=== PATIENT | female | born 1980 | race American Indian/Alaskan Native ===

== ENCOUNTER 2017-01-10 03:11 | Inpatient (IN) | payer BC, MEDICAID ==
[2017-01-10 03:49] LABS: Basophils % (Auto) 0.8 % (0.0-1.8); Eosinophils % (Auto) 0.3 % (0.0-4.3); Hemoglobin 7.2 gm/dl (10.1-14.3); Mean Corpuscular HGB Conc 30 % (30-34); Platelet Count 449 K/mm3 (140-440); Red Blood Count 3.96 M/mm3 (3.65-5.03); Red Cell Distribution Width 17.7 % (13.2-15.2); White Blood Count 14.4 K/mm3 (4.5-11.0)
[2017-01-10 04:04] LABS: Alanine Aminotransferase 9 units/L (7-56); Albumin 3.8 g/dL (3.9-5); Albumin/Globulin Ratio 1.2 %; Alkaline Phosphatase 82 units/L (35-129); Anion Gap 18 mmol/L; Bilirubin,Total < 0.2 mg/dL (0.1-1.2); Blood Urea Nitrogen 9 mg/dL (7-17); Calcium 8.4 mg/dL (8.4-10.2); Carbon Dioxide 22 mmol/L (22-30); Glucose 151 mg/dL (65-100); Sodium 135 mmol/L (137-145)
[2017-01-10 04:25] LABS: Mean Corpuscular Volume 61 fl (79-97)
[2017-01-10 04:26] LABS: Mean Corpuscular Hemoglobin 18 pg (28-32)
[2017-01-10 04:46] LABS: Bilirubin,Urine NEG (Negative); Blood,Urine NEG (Negative); Ketones,Urine NEG (Negative); Leukocyte Esterase,Urine NEG (Negative); Mucus,Urine FEW /HPF; Nitrite,Urine NEG (Negative); Protein,Urine <15 mg/dL mg/dL (Negative); RBC,Urine < 1.0 /HPF (0.0-6.0); Urobilinogen,Urine < 2.0 mg/dL (<2.0)
[2017-01-10 06:07] LABS: Lipase 19 units/L (13-60)
[2017-01-10] MEDS ORDERED: NACL 0.9% 1000 ML 1,000 ML IV ONE ×2 (08:06→10:09)
[2017-01-10] MEDS ORDERED: TORADOL IV ONE ×2 (08:06→10:09)
[2017-01-10] MEDS ORDERED: ZOFRAN IV ONE ×3 (08:09→15:57)
[2017-01-10] MEDS ORDERED: KCL 10MEQ/100ML 10 MEQ/100 ML BAG IV ONE (08:30)
[2017-01-10] MEDS ORDERED: MORPHINE IV ONE ×2 (08:31→15:57)
--- NOTE | 2017-01-10 09:00 | Emergency Department Report ---
ED Abdominal Pain HPI - General Chief Complaint: Abdominal Pain Stated Complaint: BACK AND ABD PAIN Time Seen by Provider: 01/10/17 07:50 Source: patient, family Mode of arrival: Wheelchair Limitations: No Limitations - History of Present Illness Initial Comments: 36-year-old female past medical history hypothyroid status post thyroidectomy hypertension presents with 2 days of nausea vomiting epigastric abdominal pain radiating from front to back inability to tolerate by mouth and severe pain currently 10 out of 10 on my clinical exam. Patient appears extremely uncomfortable writhing in bed. Awake alert and oriented 3 denies any trauma to the abdomen states that this started abruptly last night and has gotten progressively worse overnight. Denies any bleeding states she is not currently denies any allergies to any medicines denies starting any new medicines no recent abdominal surgeries. Patient denies any history of cardiovascular disease other than high blood pressure. MD Complaint: abdominal pain Onset/Timin -: days(s) Time: 01:00 Location: periumbilical, epigastric Radiation: back Severity: severe Severity scale (0 -10): 7 Quality: sharp Consistency: constant Worsens With: bowel movement, vomiting - Related Data Previous Rx's Medication Instructions Recorded Last Taken Type Erythromycin [Erythromycin Ophth 0 gm OD ONCE #1 tube 11/09/15 Unknown Rx Oint] Allergies Allergy/AdvReac Type Severity Reaction Status Date / Time No Known Allergies Allergy Verified 01/10/17 03:22 ED Review of Systems ROS: Stated complaint: BACK AND ABD PAIN Other details as noted in HPI Constitutional: denies: chills, fever Eyes: denies: eye pain, eye discharge, vision change ENT: denies: ear pain, throat pain Respiratory: denies: cough, shortness of breath, wheezing Cardiovascular: denies: chest pain, palpitations Endocrine: no symptoms reported Gastrointestinal: abdominal pain, nausea. denies: diarrhea Genitourinary: denies: urgency, dysuria, discharge Musculoskeletal: denies: back pain, joint swelling, arthralgia Skin: denies: rash, lesions Neurological: denies: headache, weakness, paresthesias Psychiatric: denies: anxiety, depression Hematological/Lymphatic: denies: easy bleeding, easy bruising ED Past Medical Hx - Past Medical History Previous Medical History?: Yes Hx Hypertension: Yes Additional medical history: Goiter - Surgical History Past Surgical History?: Yes Additional Surgical History: , thyroidectomy - Social History Smoking Status: Never Smoker Substance Use Type: Alcohol - Medications Home Medications: Home Medications Medication Instructions Recorded Confirmed Last Taken Type Erythromycin [Erythromycin Ophth 0 gm OD ONCE #1 tube 11/09/15 Unknown Rx Oint] ED Physical Exam - General Limitations: No Limitations General appearance: alert, in no apparent distress - Head Head exam: Present: atraumatic, normocephalic - Eye Eye exam: Present: normal appearance, PERRL, EOMI - ENT ENT exam: Present: mucous membranes moist - Neck Neck exam: Present: normal inspection, full ROM - Respiratory Respiratory exam: Present: normal lung sounds bilaterally. Absent: respiratory distress - Cardiovascular Cardiovascular Exam: Present: regular rate, normal rhythm. Absent: systolic murmur, diastolic murmur, rubs, gallop - GI/Abdominal GI/Abdominal exam: Present: tenderness (+ epigastric and RUQ pain on palpation) , guarding, rebound, rigid, normal bowel sounds - Extremities Exam Extremities exam: Present: normal inspection, full ROM, normal capillary refill - Back Exam Back exam: Present: normal inspection - Neurological Exam Neurological exam: Present: alert, oriented X3 - Psychiatric Psychiatric exam: Present: normal affect, normal mood - Skin Skin exam: Present: warm, dry, intact, normal color. Absent: rash ED Course Vital Signs 01/10/17 01/10/17 03:22 12:15 Temperature 98.2 F 98.2 F Pulse Rate 69 82 Respiratory 18 18 Rate Blood Pressure 147/90 Blood Pressure 116/82 [Right] O2 Sat by Pulse 99 100 Oximetry ED Medical Decision Making - Lab Data Result diagrams: 01/10/17 03:29 01/10/17 03:29 - Medical Decision Making A/P: Biliary colic, abdominal pain, gallstone cholecystitis 1-discussed case with Dr. Tse is of general surgery and hospitalist Dr. Woo and attending Dr. Flores 2-patient made nothing by mouth given IV fluid resuscitation, morphine and IV Zofran IV 3-IV Zosyn and IV Levaquin as per hospitalist and surgery consults empiric coverage of intra-abdominal infection 4-I informed patient that I am concerned that she has an inflamed gallbladder secondary to gallstones and a possible intra-abdominal infection which is why we are admitting her for medical and potential surgical management of her gallbladder issue. Patient still unable to tolerate by mouth and still in pain , agrees to this plan. Awake alert and oriented 3 vital signs have been stable throughout ED stay thus far 5- patient to be admitted to hospitalist service surgery service to consult for possible cholecystectomy, patient to remain nothing by mouth until instructed otherwise by general surgery Critical care attestation.: If time is entered above; I have spent that time in minutes in the direct care of this critically ill patient, excluding procedure time. ED Disposition Clinical Impression: Abdominal pain Disposition: OP ADMITTED IP TO THIS HOSP Is pt being admited?: Yes Does the pt Need Aspirin: No Condition: Stable Instructions: Abdominal Pain (ED) Referrals: PRIMARY CARE, [Primary Care Provider] - 3-5 Days
[2017-01-10 09:22] LABS: Amylase 52 units/L (27-131); Creatine Kinase 191 units/L (30-135); Lipase 15 units/L (13-60)
--- NOTE | 2017-01-10 10:13 | XRay Report ---
ROUTINE CHEST, TWO VIEWS: PA and lateral views demonstrate the heart and mediastinal contour to be of normal size and shape. The lungs are clear and fully expanded and the soft tissues and bony structures are normal. IMPRESSION: Normal study.
--- NOTE | 2017-01-10 12:09 | Cat Scan Report ---
CT SCAN OF THE ABDOMEN AND PELVIS WITH CONTRAST: HISTORY: Epigastric abdominal pain. TECHNIQUE: Helical CT in 1.25mm intervals following IV contrast. Sagittal and coronal reconstructions. FINDINGS: The liver is normal in size and is without focal defect. The gallbladder is borderline dilated and contains multiple gallstones measuring up to 1 cm. The common bile duct and intrahepatic ducts are normal caliber and there may be minimal gallbladder wall edema. No pericholecystic fluid or advanced inflammatory changes. The spleen and pancreas demonstrate a normal size and attenuation with no evidence of abnormal mass. The kidneys are normal in size and position with no evidence of hydronephrosis or mass. The adrenal glands are normal. There is no intestinal obstruction or ascites. Normal appendix. The abdominal aorta is normal. A 2 cm fibroid is identified in the anterior uterine wall. The endometrium and ovaries are within normal limits. There is no evidence of peritoneal air or fluid. There is no evidence of any abnormal masses or fluid collections within the pelvis. No adenopathy is identified. The bladder is normal. IMPRESSION: Cholelithiasis. Questionable gallbladder wall thickening. Correlate for biliary symptoms. 2 cm uterine fibroid.
[2017-01-10] MEDS ORDERED: ZOSYN/NS 4.5GM/100ML 4.5 GM/100 ML VIAL IV ONE (12:42)
[2017-01-10] MEDS ORDERED: LACTATED RINGERS 1,000 ML IV SCH (13:00)
--- NOTE | 2017-01-10 13:01 | Ultrasound Report ---
Ultrasound of the right upper quadrant. Findings: The abdominal aorta and liver are normal. There are multiple gallstones. The wall the gallbladder is not thickened. The Common bile duct is normal in caliber. The right kidney and pancreas are normal. Impression: Cholelithiasis.
[2017-01-10] MEDS ORDERED: LEVAQUIN 500MG/100ML 500 MG/100 ML BAG IV ONE (14:23)
[2017-01-10] MEDS ORDERED: MILK OF MAGNESIA PO PRN (17:53)
[2017-01-10] MEDS ORDERED: DULCOLAX PR PRN (17:53)
[2017-01-10] MEDS ORDERED: TYLENOL PO PRN (17:53)
--- NOTE | 2017-01-10 18:54 | Admit Criteria Form ---
Admission Criteria Documentation: GALLBLADDER OR BILE DUCT INFLAMMATION OR STONE Clinical Indications for Admission to Inpatient Care ( Place 'X' for any and all applicable criteria): Admission is indicated for patients with ANY ONE of the following(1)(2)(3)(4)(5) : [ X]I. Acute cholecystitis as indicated by ALL of the following: [X ]a) Right upper quadrant pain, mass, or tenderness [X ]b) Systemic signs of inflammation indicated by ANY ONE of the following: [ ]i) Fever [ ]ii) C-reactive protein level greater than 10 mg/L (95 nmol/L) [ X]iii) White blood cell count greater than 10,000/mm3 (10 x109/L) or less than 4000/mm3 (4 x109/L) [ ]II. Inpatient admission required rather than observation care (Also use Gallbladder or Bile Duct Inflammation or Stone: Observation Care as appropriate) because of ANY ONE of the following: [ ]a) Common bile duct obstruction diagnosed [ ]b) Vomiting that is severe or persistent [ ]c) Severe pain requiring acute inpatient management [ ]d) Signs of intestinal obstruction or peritonitis [A] [ ]e) Severe electrolyte abnormalities requiring inpatient care [ ]f) Absent bowel sounds with complete ileus(8) [ ]g) Hemodynamic instability [ ]h) High fever or infection requiring inpatient admission as indicated by ANY ONE of the following (9): [ ]1) Appropriate outpatient or observation care antimicrobial Treatment. unavailable, not effective, or not feasible [ ]2) Temperature greater than 104.9 degrees F (40.5 degrees C) (oral) [ ]3) Temperature greater than 103.1 degrees F (39.5 degrees C) (oral) or less than 96.8 degrees F (36 degrees C) (rectal) that does not respond to all emergency treatment measures [ ]4) Documented bacteremia [ ]i) IV fluid to replace significant ongoing losses (greater than 3 L/m2 per day) [ ]j) Percutaneous or open drainage (eg, abscess, biliary tract) procedures [ ]k) Immediate inpatient surgery [ ]l) Other condition, treatment or monitoring requiring inpatient admission [ ]III. Acute cholangitis as indicated by ALL of the following(9)(10): [ ]a) Systemic signs of inflammation indicated by ANY ONE of the following: [ ]i) Fever [ ]ii) C-reactive protein level greater than 10 mg/L (95 nmol /L) [ ]iii) White blood cell count greater than 10,000/mm3 (10 x109/L) or less than 4000/mm3 (4 x109/L) [ ]b) Evidence of common bile duct disease indicated by ANY ONE of the following: [ ]i) Total serum bilirubin level greater than or equal to 2 mg/dL (34 micromoles/L) [ ]ii) Liver function test (alkaline phosphatase (ALP), r- glutamyltransferase (GGT), aspartate aminotransferase (AST), or alanine aminotransferase (ALT)) greater than 1.5 times the upper limit of normal[B] [ ]iii) Hepatobiliary imaging showing biliary dilatation or evidence of etiology (eg, stricture, stone, previously placed stent) Extended stay beyond goal length of stay may be needed for (1)(2)): [ ]a) Bacteremia or Hemodynamic instability [ ]b) Cholecystectomy [ ]c) Other surgical procedure(24) [ ]d) Percutaneous or endoscopic ultrasound-guided cholecystostomy The original [facility] content created by [facility] has been revised. The portions of the content which have been revised are identified through the use of italic text or in bold, and [facility] has neither reviewed nor approved the modified material. All other unmodified content is copyright [facility]. Please see references footnoted in the original [facility] edition 2016 Admission Criteria Met: Yes
[2017-01-10] MEDS: DILAUDID IV PRN (22:25)
[2017-01-10] MEDS: ZOFRAN IV PRN (22:26)
--- NOTE | 2017-01-11 02:32 | Event Note ---
Date: 01/10/17 # See H/p in reports Cholelelithiasis HTN Hypothyroidism Acute anemia Hypokalemia
[2017-01-11] MEDS ORDERED: NACL 0.9% 500 ML 500 ML IV ONE (02:45)
--- NOTE | 2017-01-11 03:18 | History and Physical Report ---
CHIEF COMPLAINT: Right upper quadrant pain for two days. HISTORY OF PRESENT ILLNESS: A 36-year-old -[place] female with a history of hypothyroidism and hypertension, presents with right upper quadrant pain associated with nausea and vomiting for the last two days. Pain is about 10 on a scale of 1-10. No shortness of breath. No chest pain. No palpitations. No fever, no chills. This is the first episode of right upper quadrant pain. The patient is on blood pressure medication. PAST MEDICAL HISTORY: Significant for hypertension and hypothyroidism. PAST SURGICAL HISTORY: and thyroidectomy. SOCIAL HISTORY: Does not smoke. Alcohol occasionally. FAMILY HISTORY: Significant for hypertension. HOME MEDICATIONS: Erythromycin. REVIEW OF SYSTEMS: Right upper quadrant pain associated with nausea and vomiting x3. Otherwise, review of systems negative. All systems reviewed. PHYSICAL EXAMINATION: GENERAL: Middle-aged female, cooperative during examination. VITAL SIGNS: Blood pressure 132/73, temperature 98.2, pulse is 78, respirations are 18. HEENT: Unremarkable. Pupils equal and reactive. NECK: Supple, no lymphadenopathy, no thyromegaly. LUNGS: Clear to auscultation and percussion. Good air entry. CARDIOVASCULAR: S1, S2 heard. No gallop, no murmur, no rub. Apical impulse in the left fifth intercostal space and midclavicular line. ABDOMEN: Right upper quadrant tenderness present. Guarding present. No rebound tenderness present. Bowel sounds are normal. Hernial orifices are normal. EXTREMITIES: Good pedal pulses. No pedal edema. CENTRAL NERVOUS SYSTEM: Alert and oriented x4, nonfocal exam. SKIN: Normal. EXTREMITIES: Good pulses felt. LABORATORY DATA: Significant for white count of 14,400, H and H of 7.2 and 24.0, platelet count of 449,000. Sodium is 135, potassium is 3.0. Lactic acid is 3.0. BUN and creatinine is 99.6. LFTs normal. CT of the abdomen and ultrasound of the abdomen showed cholelithiasis and gallbladder thickening. ASSESSMENT AND PLAN: 1. Acute cholelithiasis. The patient may need cholecystectomy. Dr. Kennedy, surgeon on-call who consulted. 2. High lactic acid, possible infection. We will start IV Zosyn. 3. Hypokalemia, to be supplemented. 4. Acute anemia, iron studies, folic acid, B12 ordered. Transfuse two units of blood because of the potential surgery. 5. Deep venous thrombosis, sequential compression devices, Lovenox also. In summary, the patient has cholelithiasis, acute anemia, and hypokalemia. JOB# [id number] FADI/KEON
[2017-01-11] MEDS: KCL 10MEQ/100ML 10 MEQ/100 ML BAG IV SCH ×4 (03:40→08:00)
[2017-01-11] MEDS: DILAUDID IV PRN ×4 (06:31→22:11)
[2017-01-11 07:03] LABS: Basophils % (Auto) 0.2 % (0.0-1.8); Eosinophils % (Auto) 0.1 % (0.0-4.3); Hematocrit 24.6 % (30.3-42.9); Hemoglobin 7.4 gm/dl (10.1-14.3); Mean Corpuscular HGB Conc 30 % (30-34); Platelet Count 403 K/mm3 (140-440); Red Blood Count 4.03 M/mm3 (3.65-5.03); Red Cell Distribution Width 17.7 % (13.2-15.2); White Blood Count 10.6 K/mm3 (4.5-11.0)
[2017-01-11 07:06] LABS: Mean Corpuscular Hemoglobin 18 pg (28-32); Mean Corpuscular Volume 61 fl (79-97)
[2017-01-11 08:06] LABS: Alanine Aminotransferase 179 units/L (7-56); Albumin 3.8 g/dL (3.9-5); Albumin/Globulin Ratio 1.5 %; Alkaline Phosphatase 114 units/L (35-129); Anion Gap 16 mmol/L; BUN/Creatinine Ratio 6.66; Blood Urea Nitrogen 4 mg/dL (7-17); Calcium 8.4 mg/dL (8.4-10.2); Carbon Dioxide 24 mmol/L (22-30); Chloride 101.4 mmol/L (98-107); Glucose 97 mg/dL (65-100); Potassium 3.7 mmol/L (3.6-5.0); Sodium 138 mmol/L (137-145); Total Protein 6.3 g/dL (6.3-8.2)
[2017-01-11 09:44] LABS: Bilirubin,Total 0.2 mg/dL (0.1-1.2)
[2017-01-11] MEDS: ZOSYN/NS 4.5GM/100ML 4.5 GM/100 ML VIAL IV SCH ×3 (10:52→22:13)
[2017-01-11] MEDS: ZOFRAN IV PRN (10:53)
--- NOTE | 2017-01-11 12:24 | Progress Note ---
Assessment and Plan Full consult dictated 36 y/o female - acute cholecystitis Feeling much better now. Abd soft. non tender at present labs as below. wbc down to 10.6. Extremely anemic. (pt has hx of uterine fibroids) GB U/S - + stones. CBD wnl imp - improving cholecystitis/biliary colic severe anemia needs blood transfusion prior to contemplating surg continue IV Levaquin possible lap GB in next 48 hrs pending clinical progression Selected Entries 01/11/17 07:00 Temperature 97.8 F Pulse Rate [ 69 Right From Monitor] Respiratory 18 Rate Blood Pressure 118/80 [Right Arm] Laboratory Tests 01/10/17 01/11/17 01/11/17 03:29 06:03 06:03 WBC 14.4 H 10.6 Hgb 7.2 L 7.4 L Hct 24.0 L 24.6 L Sodium 138 Potassium 3.7 D Chloride 101.4 Carbon Dioxide 24 Anion Gap 16 BUN 4 L Total Bilirubin 0.2 AST 150 H ALT 179 H Alkaline Phosphatase 114 Objective Vital Signs - 12hr 01/11/17 01/11/17 07:00 10:53 Temperature 97.8 F Pulse Rate [ 69 Right From Monitor] Respiratory 18 20 Rate Blood Pressure 118/80 [Right Arm] O2 Sat by Pulse 98 Oximetry - Labs 01/11/17 06:03 01/11/17 06:03 Diabetes panel 01/11/17 Range/Units 06:03 Sodium 138 (137-145) mmol/L Potassium 3.7 D (3.6-5.0) mmol/L Chloride 101.4 (98-107) mmol/L Carbon Dioxide 24 (22-30) mmol/L BUN 4 L (7-17) mg/dL Creatinine 0.6 L (0.7-1.2) mg/dL Glucose 97 (65-100) mg/dL Calcium 8.4 (8.4-10.2) mg/dL AST 150 H (5-40) units/L ALT 179 H (7-56) units/L Alkaline Phosphatase 114 (35-129) units/L Total Protein 6.3 (6.3-8.2) g/dL Albumin 3.8 L (3.9-5) g/dL Calcium panel 01/11/17 Range/Units 06:03 Calcium 8.4 (8.4-10.2) mg/dL Albumin 3.8 L (3.9-5) g/dL Pituitary panel 01/11/17 Range/Units 06:03 Sodium 138 (137-145) mmol/L Potassium 3.7 D (3.6-5.0) mmol/L Chloride 101.4 (98-107) mmol/L Carbon Dioxide 24 (22-30) mmol/L BUN 4 L (7-17) mg/dL Creatinine 0.6 L (0.7-1.2) mg/dL Glucose 97 (65-100) mg/dL Calcium 8.4 (8.4-10.2) mg/dL Adrenal panel 01/11/17 Range/Units 06:03 Sodium 138 (137-145) mmol/L Potassium 3.7 D (3.6-5.0) mmol/L Chloride 101.4 (98-107) mmol/L Carbon Dioxide 24 (22-30) mmol/L BUN 4 L (7-17) mg/dL Creatinine 0.6 L (0.7-1.2) mg/dL Glucose 97 (65-100) mg/dL Calcium 8.4 (8.4-10.2) mg/dL Total Bilirubin 0.2 (0.1-1.2) mg/dL AST 150 H (5-40) units/L ALT 179 H (7-56) units/L Alkaline Phosphatase 114 (35-129) units/L Total Protein 6.3 (6.3-8.2) g/dL Albumin 3.8 L (3.9-5) g/dL
[2017-01-11] MEDS ORDERED: ZOFRAN IV PRN (13:34)
--- NOTE | 2017-01-11 13:35 | Progress Note ---
Assessment and Plan Assessment and plan: Patient is 28-year-old woman with a history of iron deficiency anemia due to severe menstrual period with heavy bleeding, hypertension and hypothyroidism who presents with right upper quadrant abdominal pain with nausea vomiting. Abdominal ultrasound showed cholelithiasis 1. Sepsis, POA due to acute cholecystitis: IV antibiotics and follow cultures 2. Acute cholecystitis with cholelithiasis: Nothing by mouth 3. Acute on chronic blood loss anemia: Transfuse History Interval history: Patient seen and examined. Follow up on right side abdominal pain just still present. Overnight uneventful. No cp, sob, n/v or severe headaches. Imaging, old records, testing, labs, nursing notes reviewed. Hospitalist Physical - Physical exam Narrative exam: GEN: WDWN, NAD, AWAKE, ALERT, ORIENTATED 3 HEENT: NCAT, PERRL, EOMI, OP CLEAR NECK: SUPPLE, NO THYROMEGALY, NO JVD, NO LAD CVS: RRR, NORMAL S1S2 LUNGS/CHEST: CTA B, NORMAL CHEST EXPANSION B, GOOD AIR ENTRY B ABD: SOFT, RIGHT SIDED TENDERNESS, NONDISTENDED GBS, NO REBOUND OR GUARDING EXT/SKIN: NO SIGNIFICANT EDEMA OR RASH, mucous membranes dry MSK: FROM X 4 EXTREMITIES NEURO: CN 2-12 GROSSLY INTACT, NO new FOCAL DEFICITS PSY: CALM - Constitutional Vitals: Temp Pulse Resp BP Pulse Ox 97.8 F 69 20 118/80 98 01/11/17 07:00 01/11/17 07:00 01/11/17 10:53 01/11/17 07:00 01/11/17 07:00 Results - Labs CBC & Chem 7: 01/11/17 06:03 01/11/17 06:03 Labs: Laboratory Last Values WBC 10.6 K/mm3 (4.5-11.0) 01/11/17 06:03 RBC 4.03 M/mm3 (3.65-5.03) 01/11/17 06:03 Hgb 7.4 gm/dl (10.1-14.3) L 01/11/17 06:03 Hct 24.6 % (30.3-42.9) L 01/11/17 06:03 MCV 61 fl (79-97) L 01/11/17 06:03 MCH 18 pg (28-32) L 01/11/17 06:03 MCHC 30 % (30-34) 01/11/17 06:03 RDW 17.7 % (13.2-15.2) H 01/11/17 06:03 Plt Count 403 K/mm3 (140-440) 01/11/17 06:03 Lymph % (Auto) 9.0 % (13.4-35.0) L 01/11/17 06:03 [place] % (Auto) 7.5 % (0.0-7.3) H 01/11/17 06:03 Eos % (Auto) 0.1 % (0.0-4.3) 01/11/17 06:03 Baso % (Auto) 0.2 % (0.0-1.8) 01/11/17 06:03 Lymph # 1.0 K/mm3 (1.2-5.4) L 01/11/17 06:03 [place] # 0.8 K/mm3 (0.0-0.8) 01/11/17 06:03 Eos # 0.0 K/mm3 (0.0-0.4) 01/11/17 06:03 Baso # 0.0 K/mm3 (0.0-0.1) 01/11/17 06:03 Seg Neutrophils % 83.2 % (40.0-70.0) H 01/11/17 06:03 Seg Neutrophils # 8.8 K/mm3 (1.8-7.7) H 01/11/17 06:03 VBG pH 7.345 (7.320-7.420) 01/10/17 08:35 Sodium 138 mmol/L (137-145) 01/11/17 06:03 Potassium 3.7 mmol/L (3.6-5.0) D 01/11/17 06:03 Chloride 101.4 mmol/L (98-107) 01/11/17 06:03 Carbon Dioxide 24 mmol/L (22-30) 01/11/17 06:03 Anion Gap 16 mmol/L 01/11/17 06:03 BUN 4 mg/dL (7-17) L 01/11/17 06:03 Creatinine 0.6 mg/dL (0.7-1.2) L 01/11/17 06:03 Estimated GFR > 60 ml/min 01/11/17 06:03 BUN/Creatinine Ratio 6.66 % 01/11/17 06:03 Glucose 97 mg/dL (65-100) 01/11/17 06:03 Lactic Acid 1.8 mmol/L (0.7-2.0) 01/10/17 15:11 Calcium 8.4 mg/dL (8.4-10.2) 01/11/17 06:03 Iron 18 ug/dL (37-170) L 01/11/17 06:03 TIBC 434.00 mcg/dL (250-450) 01/11/17 06:03 % Saturation 4.15 % 01/11/17 06:03 Transferrin 310 mg/dl (192-382) 01/11/17 06:03 Total Bilirubin 0.2 mg/dL (0.1-1.2) 01/11/17 06:03 AST 150 units/L (5-40) H 01/11/17 06:03 ALT 179 units/L (7-56) H 01/11/17 06:03 Alkaline Phosphatase 114 units/L (35-129) 01/11/17 06:03 Total Creatine Kinase 191 units/L (30-135) H 01/10/17 08:35 CK-MB (CK-2) 1.6 ng/mL (0.0-4.0) 01/10/17 08:35 Troponin T < 0.010 ng/mL (0.00-0.029) 01/10/17 08:35 Total Protein 6.3 g/dL (6.3-8.2) 01/11/17 06:03 Albumin 3.8 g/dL (3.9-5) L 01/11/17 06:03 Albumin/Globulin Ratio 1.5 % 01/11/17 06:03 Amylase 52 units/L (27-131) 01/10/17 08:35 Lipase 15 units/L (13-60) 01/10/17 08:35 Vitamin B12 787.8 pg/mL (211-911) 01/11/17 06:03 Urine Color Yellow (Yellow) 01/10/17 03:30 Urine Turbidity Cloudy (Clear) 01/10/17 03:30 Urine pH 9.0 (5.0-7.0) H 01/10/17 03:30 Ur Specific [place] 1.014 (1.003-1.030) 01/10/17 03:30 Urine Protein <15 mg/dl mg/dL (Negative) 01/10/17 03:30 Urine Glucose (UA) 50 mg/dL (Negative) 01/10/17 03:30 Urine Ketones Neg mg/dL (Negative) 01/10/17 03:30 Urine Blood Neg (Negative) 01/10/17 03:30 Urine Nitrite Neg (Negative) 01/10/17 03:30 Urine Bilirubin Neg (Negative) 01/10/17 03:30 Urine Urobilinogen < 2.0 mg/dL (<2.0) 01/10/17 03:30 Ur Leukocyte Esterase Neg (Negative) 01/10/17 03:30 Urine WBC (Auto) 1.0 /HPF (0.0-6.0) 01/10/17 03:30 Urine RBC (Auto) < 1.0 /HPF (0.0-6.0) 01/10/17 03:30 U Epithel Cells (Auto) 1.0 /HPF (0-13.0) 01/10/17 03:30 Amorphous Crystals Few 01/10/17 03:30 Hyaline Casts 1 /LPF 01/10/17 03:30 Urine Mucus Few /HPF 01/10/17 03:30 Urine HCG, Qual Negative (Negative) 01/10/17 03:30 Blood Type O POSITIVE 01/11/17 06:05 Antibody Screen Negative 01/11/17 06:05 Crossmatch See Detail 01/11/17 06:05 - Imaging and Cardiology CT scan - abdomen: report reviewed
[2017-01-11] MEDS ORDERED: NACL 0.9% 500 ML 500 ML ONE (15:05)
[2017-01-11] MEDS ORDERED: NACL 0.9% 500 ML 500 ML IV NR (16:00)
--- NOTE | 2017-01-12 00:41 | Consultation ---
REASON FOR CONSULTATION: Rule out acute cholecystitis. HISTORY OF PRESENT ILLNESS: The patient is a 36-year-old female who presented to the Emergency Room with recent onset of epigastric abdominal pain radiating to her back, accompanied by nausea and vomiting. The patient states she \\"is feeling much better now.\\" PAST MEDICAL HISTORY: Fibroids and hypertension. PAST SURGICAL HISTORY: Status post thyroidectomy and . ALLERGIES: No known allergies. MEDICATIONS: Includes Synthroid and amlodipine for her blood pressure. FAMILY HISTORY: Hypertension and diabetes. SOCIAL HISTORY: Occasional ethanol intake. Denies any smoking. REVIEW OF SYSTEMS: Noncontributory. PHYSICAL EXAMINATION: GENERAL: At this time reveals the patient to be awake, alert, cooperative, and previously stated, feeling better from the time of her admission. VITAL SIGNS: Show her to be afebrile with a temperature of 97.8, blood pressure is 118/80, pulse 69, respirations of 18. HEENT: Pupils are equal and reactive to light and accommodation. Sclerae is nonicteric. ABDOMEN: Examination of the abdomen reveals it to be moderately obese and soft. Minimal tenderness noted at this time. LABORATORY DATA: Lab work at present includes a CBC, which shows a white count 10.6 down from 14.4 on admission. H and H is very low at 7.4 and 24.6. The patient denies any hemoptysis, hematuria, melena or hematochezia. Presumably, this low H and H maybe from her chronic fibroid bleeding. Electrolytes are essentially within normal limits. LFTs show an AST of 150, ALT of 179, alkaline phosphatase of 114. Total bilirubin is 0.2. Amylase is 52 and lipase is 15. Gallbladder ultrasound and CT scan of the abdomen had been performed, which I have reviewed with the radiologist. The gallbladder ultrasound reveals significant large gallstones. No pericholecystic fluid. The CT again confirms gallstones, possibly very borderline thickened gallbladder wall. IMPRESSION: 1. At this time is that of a 36-year-old female with significant anemia. 2. Rule out acute cholecystitis/biliary colic. RECOMMENDATIONS: At this time, continue n.p.o. Continue IV Levaquin. Certainly, the patient would need a blood transfusion prior to contemplating any surgical intervention. Most likely, we will proceed with laparoscopic cholecystectomy in the next 48 hours or once inflammation has somewhat subsided with the IV antibiotics and her H and H is normalized. We will follow closely with you. Thank you very much for consultation. JOB# [id number] LORENA/KEON
[2017-01-12] MEDS: DILAUDID IV PRN ×4 (03:21→22:20)
[2017-01-12 06:18] LABS: Basophils % (Auto) 0.8 % (0.0-1.8); Eosinophils % (Auto) 0.2 % (0.0-4.3); Hemoglobin 9.2 gm/dl (10.1-14.3); Mean Corpuscular HGB Conc 32 % (30-34); Platelet Count 356 K/mm3 (140-440); Red Blood Count 4.49 M/mm3 (3.65-5.03); White Blood Count 9.9 K/mm3 (4.5-11.0)
[2017-01-12 06:19] LABS: Mean Corpuscular Hemoglobin 20 pg (28-32); Mean Corpuscular Volume 65 fl (79-97); Red Cell Distribution Width 21.6 % (13.2-15.2)
[2017-01-12 06:33] LABS: Anion Gap 16 mmol/L; Blood Urea Nitrogen 6 mg/dL (7-17); Calcium 8.2 mg/dL (8.4-10.2); Carbon Dioxide 26 mmol/L (22-30); Chloride 101.5 mmol/L (98-107); Glucose 82 mg/dL (65-100); Potassium 3.5 mmol/L (3.6-5.0); Sodium 140 mmol/L (137-145)
--- NOTE | 2017-01-12 08:14 | Progress Note ---
Assessment and Plan Pt feeling better. less pain Abd soft h/h improved post transfusion surgically stable continue IV antibiotics for lap GB in am Selected Entries 01/12/17 01/12/17 02:45 03:21 Temperature 98.6 F Respiratory 18 Rate Blood Pressure 118/67 Laboratory Tests 01/12/17 05:47 WBC 9.9 Hgb 9.2 L Hct 29.0 L Objective Vital Signs - 12hr 01/11/17 01/12/17 01/12/17 22:00 00:15 00:45 Temperature 98.6 F 98.6 F Pulse Rate 55 L 62 Pulse Rate [ 67 Right From Monitor] Respiratory 18 18 Rate Respiratory 17 Rate [back and abd] Blood Pressure 127/63 124/76 Blood Pressure [Right Arm] O2 Sat by Pulse 100 100 Oximetry 01/12/17 01/12/17 01/12/17 00:50 01:15 01:45 Temperature 98.6 F 98.7 F 98.7 F Pulse Rate 67 68 Pulse Rate [ 66 Right From Monitor] Respiratory 20 18 17 Rate Respiratory Rate [back and abd] Blood Pressure 119/64 129/87 Blood Pressure 118/65 [Right Arm] O2 Sat by Pulse 99 100 99 Oximetry 01/12/17 01/12/17 01/12/17 02:15 02:45 03:21 Temperature 98.7 F 98.6 F Pulse Rate 69 62 Pulse Rate [ Right From Monitor] Respiratory 19 17 18 Rate Respiratory Rate [back and abd] Blood Pressure 123/67 118/67 Blood Pressure [Right Arm] O2 Sat by Pulse 100 100 Oximetry - Labs 01/12/17 05:47 01/12/17 05:47 Diabetes panel 01/11/17 01/12/17 Range/Units 06:03 05:47 Sodium 140 (137-145) mmol/L Potassium 3.7 D 3.5 L (3.6-5.0) mmol/L Chloride 101.5 (98-107) mmol/L Carbon Dioxide 26 (22-30) mmol/L BUN 6 L (7-17) mg/dL Creatinine 0.8 (0.7-1.2) mg/dL Glucose 82 (65-100) mg/dL Calcium 8.2 L (8.4-10.2) mg/dL Calcium panel 01/12/17 Range/Units 05:47 Calcium 8.2 L (8.4-10.2) mg/dL Pituitary panel 01/11/17 01/12/17 Range/Units 06:03 05:47 Sodium 140 (137-145) mmol/L Potassium 3.7 D 3.5 L (3.6-5.0) mmol/L Chloride 101.5 (98-107) mmol/L Carbon Dioxide 26 (22-30) mmol/L BUN 6 L (7-17) mg/dL Creatinine 0.8 (0.7-1.2) mg/dL Glucose 82 (65-100) mg/dL Calcium 8.2 L (8.4-10.2) mg/dL Adrenal panel 01/11/17 01/12/17 Range/Units 06:03 05:47 Sodium 140 (137-145) mmol/L Potassium 3.7 D 3.5 L (3.6-5.0) mmol/L Chloride 101.5 (98-107) mmol/L Carbon Dioxide 26 (22-30) mmol/L BUN 6 L (7-17) mg/dL Creatinine 0.8 (0.7-1.2) mg/dL Glucose 82 (65-100) mg/dL Calcium 8.2 L (8.4-10.2) mg/dL Total Bilirubin 0.2 (0.1-1.2) mg/dL
[2017-01-12] MEDS: KCL 10MEQ/100ML 10 MEQ/100 ML BAG IV SCH ×2 (09:47→11:50)
[2017-01-12] MEDS: PROTONIX IV SCH (09:48)
[2017-01-12] MEDS: D5/0.45NS 1,000 ML IV SCH (09:49)
--- NOTE | 2017-01-12 10:39 | Progress Note ---
Assessment and Plan Assessment and plan: Patient is 28-year-old woman with a history of iron deficiency anemia due to severe menstrual period with heavy bleeding, hypertension and hypothyroidism who presents with right upper quadrant abdominal pain with nausea vomiting. Abdominal ultrasound showed cholelithiasis 1. Sepsis, POA due to acute cholecystitis: IV antibiotics and follow cultures 2. Acute cholecystitis with cholelithiasis: Nothing by mouth 3. Acute on chronic blood loss anemia due to fibroids most likely: Transfused 2 units 3 lap arianne tomorrow. History Interval history: Patient seen and examined. Follow up on right side abdominal pain just still present but she feels better after 2 units of prbc yesterday. Overnight uneventful. No cp, sob, n/v or severe headaches. Imaging, old records, testing, labs, nursing notes reviewed. Hospitalist Physical - Physical exam Narrative exam: GEN: WDWN, NAD, AWAKE, ALERT, ORIENTATED 3 HEENT: NCAT, PERRL, EOMI, OP CLEAR NECK: SUPPLE, NO THYROMEGALY, NO JVD, NO LAD CVS: RRR, NORMAL S1S2 LUNGS/CHEST: CTA B, NORMAL CHEST EXPANSION B, GOOD AIR ENTRY B ABD: SOFT, RIGHT SIDED TENDERNESS, NONDISTENDED GBS, NO REBOUND OR GUARDING EXT/SKIN: NO SIGNIFICANT EDEMA OR RASH, mucous membranes dry MSK: FROM X 4 EXTREMITIES NEURO: CN 2-12 GROSSLY INTACT, NO new FOCAL DEFICITS PSY: CALM - Constitutional Vitals: Temp Pulse Resp BP Pulse Ox 98.8 F 72 18 142/90 100 01/12/17 08:00 01/12/17 08:00 01/12/17 09:44 01/12/17 08:00 01/12/17 08:00 Results - Labs CBC & Chem 7: 01/12/17 05:47 01/12/17 05:47 Labs: Laboratory Last Values WBC 9.9 K/mm3 (4.5-11.0) 01/12/17 05:47 RBC 4.49 M/mm3 (3.65-5.03) 01/12/17 05:47 Hgb 9.2 gm/dl (10.1-14.3) L 01/12/17 05:47 Hct 29.0 % (30.3-42.9) L 01/12/17 05:47 MCV 65 fl (79-97) L D 01/12/17 05:47 MCH 20 pg (28-32) L 01/12/17 05:47 MCHC 32 % (30-34) 01/12/17 05:47 RDW 21.6 % (13.2-15.2) H 01/12/17 05:47 Plt Count 356 K/mm3 (140-440) 01/12/17 05:47 Lymph % (Auto) 19.6 % (13.4-35.0) 01/12/17 05:47 [place] % (Auto) 8.0 % (0.0-7.3) H 01/12/17 05:47 Eos % (Auto) 0.2 % (0.0-4.3) 01/12/17 05:47 Baso % (Auto) 0.8 % (0.0-1.8) 01/12/17 05:47 Lymph # 1.9 K/mm3 (1.2-5.4) 01/12/17 05:47 [place] # 0.8 K/mm3 (0.0-0.8) 01/12/17 05:47 Eos # 0.0 K/mm3 (0.0-0.4) 01/12/17 05:47 Baso # 0.1 K/mm3 (0.0-0.1) 01/12/17 05:47 Seg Neutrophils % 71.4 % (40.0-70.0) H 01/12/17 05:47 Seg Neutrophils # 7.0 K/mm3 (1.8-7.7) 01/12/17 05:47 VBG pH 7.345 (7.320-7.420) 01/10/17 08:35 Sodium 140 mmol/L (137-145) 01/12/17 05:47 Potassium 3.5 mmol/L (3.6-5.0) L 01/12/17 05:47 Chloride 101.5 mmol/L (98-107) 01/12/17 05:47 Carbon Dioxide 26 mmol/L (22-30) 01/12/17 05:47 Anion Gap 16 mmol/L 01/12/17 05:47 BUN 6 mg/dL (7-17) L 01/12/17 05:47 Creatinine 0.8 mg/dL (0.7-1.2) 01/12/17 05:47 Estimated GFR > 60 ml/min 01/12/17 05:47 BUN/Creatinine Ratio 7.50 % 01/12/17 05:47 Glucose 82 mg/dL (65-100) 01/12/17 05:47 Lactic Acid 1.8 mmol/L (0.7-2.0) 01/10/17 15:11 Calcium 8.2 mg/dL (8.4-10.2) L 01/12/17 05:47 Iron 18 ug/dL (37-170) L 01/11/17 06:03 TIBC 434.00 mcg/dL (250-450) 01/11/17 06:03 % Saturation 4.15 % 01/11/17 06:03 Transferrin 310 mg/dl (192-382) 01/11/17 06:03 Total Bilirubin 0.2 mg/dL (0.1-1.2) 01/11/17 06:03 AST 150 units/L (5-40) H 01/11/17 06:03 ALT 179 units/L (7-56) H 01/11/17 06:03 Alkaline Phosphatase 114 units/L (35-129) 01/11/17 06:03 Total Creatine Kinase 191 units/L (30-135) H 01/10/17 08:35 CK-MB (CK-2) 1.6 ng/mL (0.0-4.0) 01/10/17 08:35 Troponin T < 0.010 ng/mL (0.00-0.029) 01/10/17 08:35 Total Protein 6.3 g/dL (6.3-8.2) 01/11/17 06:03 Albumin 3.8 g/dL (3.9-5) L 01/11/17 06:03 Albumin/Globulin Ratio 1.5 % 01/11/17 06:03 Amylase 52 units/L (27-131) 01/10/17 08:35 Lipase 15 units/L (13-60) 01/10/17 08:35 Vitamin B12 787.8 pg/mL (211-911) 01/11/17 06:03 Urine Color Yellow (Yellow) 01/10/17 03:30 Urine Turbidity Cloudy (Clear) 01/10/17 03:30 Urine pH 9.0 (5.0-7.0) H 01/10/17 03:30 Ur Specific [place] 1.014 (1.003-1.030) 01/10/17 03:30 Urine Protein <15 mg/dl mg/dL (Negative) 01/10/17 03:30 Urine Glucose (UA) 50 mg/dL (Negative) 01/10/17 03:30 Urine Ketones Neg mg/dL (Negative) 01/10/17 03:30 Urine Blood Neg (Negative) 01/10/17 03:30 Urine Nitrite Neg (Negative) 01/10/17 03:30 Urine Bilirubin Neg (Negative) 01/10/17 03:30 Urine Urobilinogen < 2.0 mg/dL (<2.0) 01/10/17 03:30 Ur Leukocyte Esterase Neg (Negative) 01/10/17 03:30 Urine WBC (Auto) 1.0 /HPF (0.0-6.0) 01/10/17 03:30 Urine RBC (Auto) < 1.0 /HPF (0.0-6.0) 01/10/17 03:30 U Epithel Cells (Auto) 1.0 /HPF (0-13.0) 01/10/17 03:30 Amorphous Crystals Few 01/10/17 03:30 Hyaline Casts 1 /LPF 01/10/17 03:30 Urine Mucus Few /HPF 01/10/17 03:30 Urine HCG, Qual Negative (Negative) 01/10/17 03:30 Blood Type O POSITIVE 01/11/17 06:05 Antibody Screen Negative 01/11/17 06:05 Crossmatch See Detail 01/11/17 06:05
[2017-01-12] MEDS: ZOSYN/NS 4.5GM/100ML 4.5 GM/100 ML VIAL IV SCH ×3 (16:07→22:19)
[2017-01-13] MEDS: D5/0.45NS 1,000 ML IV SCH ×2 (01:09→15:50)
[2017-01-13] MEDS: DILAUDID IV PRN ×3 (02:58→15:56)
--- NOTE | 2017-01-13 06:36 | Anesthesia Consultation ---
Anesthesia Consult and Med Hx Date of service: 01/13/17 - Airway Anesthetic Teeth Evaluation: Good ROM Head & Neck: Adequate Mental/Hyoid Distance: Adequate Mallampati Class: Class II Intubation Access Assessment: Probably Good - Pulmonary Exam CTA: Yes - Cardiac Exam Cardiac Exam: RRR - Pre-Operative Health Status ASA Pre-Surgery Classification: ASA2 Proposed Anesthetic Plan: General - Cardiovascular System Hx Hypertension: Yes - Central Nervous System Hx Psychiatric Problems: No - Endocrine Hx Hypothyroidism: Yes
--- NOTE | 2017-01-13 06:36 | Anesthesia Day of Surgery ---
Anesthesia Day of Surgery - Day of Surgery Patient Examined: Yes Patient H&P Reviewed: Yes Patient is NPO: Yes
[2017-01-13] MEDS ORDERED: LACTATED RINGERS 1,000 ML IV SCH (07:00)
[2017-01-13] MEDS ORDERED: PEPCID PO NR (07:00)
[2017-01-13] MEDS ORDERED: VERSED IV NR (07:00)
[2017-01-13] MEDS ORDERED: DILAUDID IV PRN (07:04)
[2017-01-13] MEDS ORDERED: NORCO 5/325 PO PRN (07:04)
[2017-01-13] MEDS ORDERED: DIPRIVAN 10 MG/ML IV ONE (07:18)
[2017-01-13] MEDS ORDERED: ZEMURON IV ONE (07:19)
[2017-01-13] MEDS ORDERED: XYLOCAINE MPF 2% ONE (07:19)
[2017-01-13] MEDS ORDERED: DILAUDID ONE (07:19)
[2017-01-13] MEDS: ZOSYN/NS 4.5GM/100ML 4.5 GM/100 ML VIAL IV SCH ×3 (07:25→21:12)
[2017-01-13] MEDS ORDERED: MARCAINE-EPI 0.5%-1:200,000 INFILTRATI ONE ×3 (07:39→08:00)
[2017-01-13] MEDS ORDERED: ROBINUL ONE ×2 (08:09→08:14)
[2017-01-13] MEDS ORDERED: ZOFRAN ONE (08:09)
[2017-01-13] MEDS ORDERED: DECADRON ONE (08:09)
[2017-01-13] MEDS ORDERED: NEOSTIGMINE ONE (08:09)
[2017-01-13] MEDS ORDERED: LACTATED RINGERS 1,000 ML ONE (08:26)
[2017-01-13] MEDS ORDERED: NACL 0.9% IR ONE ×2 (08:42)
--- NOTE | 2017-01-13 09:53 | Operative Report ---
PREOPERATIVE DIAGNOSIS: Rule out acute cholecystitis. POSTOPERATIVE DIAGNOSES: Rule out acute cholecystitis with hydrops of the gallbladder. PROCEDURE: Laparoscopic cholecystectomy, difficult case secondary to inflammation and edema. PROCEDURE: Laparoscopic cholecystectomy. SURGEON: Philip Lyons M.D. SALES OFFICE ADMINISTRATOR: Dr. Holguin. ANESTHESIA: General. ESTIMATED BLOOD LOSS: Minimal. DRAINS: None. COMPLICATIONS: None. PROCEDURE IN DETAIL: The patient was taken to the operating room, prepped and draped in usual sterile fashion. Veress needle was inserted and CO2 insufflation begun. A 5 mm trocar was inserted and camera inserted. All other trocars were inserted under direct visualization. Attention was then focused to the gallbladder. The gallbladder was noted to be pale and quite distended. The gallbladder was decompressed with the laparoscopic needle and 20 mL syringe. The bile aspirate was clear consistent with hydrops. Bile was sent for aerobic and anaerobic cultures. After decompression, the gallbladder was grasped at the fundus and infundibulum and retracted towards the right subphrenic space. Dissection was then carried out along the Calot's triangle. The cystic duct and artery were delineated in their entire course. Both were then doubly clipped and transected. Hook electrocautery was then used to slowly dissect the gallbladder from the overlying liver bed. Dissection was difficult due to the edema and induration. Eventually, the gallbladder was able to be slowly dissected free from the gallbladder fossa. The gallbladder itself was also intrahepatic. Some oozing at the gallbladder fossa was noted. This was eventually controlled with electrocautery as well as Surgicel packing. Gallbladder was then completely freed and brought out through the subxiphoid port. This area was inspected for bleeding and noted to be dry. Subxiphoid trocar was then gently reinserted. The entire upper abdomen was irrigated copiously and dry. Checked for hemostasis and noted to be dry. Again, Surgicel packing was placed. All 5 mm trocars were removed under direct visualization. No bleeding or oozing noted. A subxiphoid trocar was then used to expel the CO2 and the trocars were removed. The fascia at this site was closed with a [id number] 0 Vicryl suture. The skin at all port sites was closed with subcuticular 4-0 Vicryl. A 0.5% Marcaine was infiltrated over the port site for postoperative pain relief. The patient tolerated the procedure well and left the OR in stable condition. JOB# [id number] LORENA/KEON
--- NOTE | 2017-01-13 09:56 | Post Anesthesia Evaluation ---
- Post Anesthesia Evaluation Patient Participated: Yes Airway Patent: Yes Stable Respiratory Function: Yes Temp > 96.8F: Yes Pain Manageable: Yes Adequeate Hydration: Yes Anesthesia Complications: No Block Receding Appropriately: Not Applicable
--- NOTE | 2017-01-13 10:19 | Event Note ---
Date: 01/13/17 I went to see and she is gone for surgery
[2017-01-13] MEDS: PROTONIX IV SCH (10:59)
--- NOTE | 2017-01-13 12:04 | Progress Note ---
Assessment and Plan Assessment and plan: Patient is 28-year-old woman with a history of iron deficiency anemia due to severe menstrual period with heavy bleeding, hypertension and hypothyroidism who presents with right upper quadrant abdominal pain with nausea vomiting. Abdominal ultrasound showed cholelithiasis 1. Sepsis, POA due to acute cholecystitis: IV antibiotics and follow cultures 2. Acute cholecystitis with cholelithiasis: Nothing by mouth 3. Acute on chronic blood loss anemia due to fibroids most likely: Transfused 2 units 3. lap arianne done. History Interval history: Patient seen and examined. Follow up on right side abdominal pain s/p lap arianne today but she feels better after 2 units of prbc. Overnight uneventful. No cp, sob, n/v or severe headaches. Imaging, old records, testing, labs, nursing notes reviewed. Hospitalist Physical - Physical exam Narrative exam: GEN: WDWN, NAD, AWAKE, ALERT, ORIENTATED 3 HEENT: NCAT, PERRL, EOMI, OP CLEAR NECK: SUPPLE, NO THYROMEGALY, NO JVD, NO LAD CVS: RRR, NORMAL S1S2 LUNGS/CHEST: CTA B, NORMAL CHEST EXPANSION B, GOOD AIR ENTRY B ABD: SOFT, RIGHT SIDED TENDERNESS, NONDISTENDED GBS, NO REBOUND OR GUARDING EXT/SKIN: NO SIGNIFICANT EDEMA OR RASH, mucous membranes dry MSK: FROM X 4 EXTREMITIES NEURO: CN 2-12 GROSSLY INTACT, NO new FOCAL DEFICITS PSY: CALM - Constitutional Vitals: Temp Pulse Resp BP Pulse Ox 97.1 F L 50 L 19 147/85 100 01/13/17 10:25 01/13/17 10:25 01/13/17 10:52 01/13/17 10:25 01/13/17 10:25 Results - Labs CBC & Chem 7: 01/12/17 05:47 01/12/17 05:47 Labs: Laboratory Last Values WBC 9.9 K/mm3 (4.5-11.0) 01/12/17 05:47 RBC 4.49 M/mm3 (3.65-5.03) 01/12/17 05:47 Hgb 9.2 gm/dl (10.1-14.3) L 01/12/17 05:47 Hct 29.0 % (30.3-42.9) L 01/12/17 05:47 MCV 65 fl (79-97) L D 01/12/17 05:47 MCH 20 pg (28-32) L 01/12/17 05:47 MCHC 32 % (30-34) 01/12/17 05:47 RDW 21.6 % (13.2-15.2) H 01/12/17 05:47 Plt Count 356 K/mm3 (140-440) 01/12/17 05:47 Lymph % (Auto) 19.6 % (13.4-35.0) 01/12/17 05:47 [place] % (Auto) 8.0 % (0.0-7.3) H 01/12/17 05:47 Eos % (Auto) 0.2 % (0.0-4.3) 01/12/17 05:47 Baso % (Auto) 0.8 % (0.0-1.8) 01/12/17 05:47 Lymph # 1.9 K/mm3 (1.2-5.4) 01/12/17 05:47 [place] # 0.8 K/mm3 (0.0-0.8) 01/12/17 05:47 Eos # 0.0 K/mm3 (0.0-0.4) 01/12/17 05:47 Baso # 0.1 K/mm3 (0.0-0.1) 01/12/17 05:47 Seg Neutrophils % 71.4 % (40.0-70.0) H 01/12/17 05:47 Seg Neutrophils # 7.0 K/mm3 (1.8-7.7) 01/12/17 05:47 VBG pH 7.345 (7.320-7.420) 01/10/17 08:35 Sodium 140 mmol/L (137-145) 01/12/17 05:47 Potassium 3.5 mmol/L (3.6-5.0) L 01/12/17 05:47 Chloride 101.5 mmol/L (98-107) 01/12/17 05:47 Carbon Dioxide 26 mmol/L (22-30) 01/12/17 05:47 Anion Gap 16 mmol/L 01/12/17 05:47 BUN 6 mg/dL (7-17) L 01/12/17 05:47 Creatinine 0.8 mg/dL (0.7-1.2) 01/12/17 05:47 Estimated GFR > 60 ml/min 01/12/17 05:47 BUN/Creatinine Ratio 7.50 % 01/12/17 05:47 Glucose 82 mg/dL (65-100) 01/12/17 05:47 Lactic Acid 1.8 mmol/L (0.7-2.0) 01/10/17 15:11 Calcium 8.2 mg/dL (8.4-10.2) L 01/12/17 05:47 Iron 18 ug/dL (37-170) L 01/11/17 06:03 TIBC 434.00 mcg/dL (250-450) 01/11/17 06:03 % Saturation 4.15 % 01/11/17 06:03 Transferrin 310 mg/dl (192-382) 01/11/17 06:03 Total Bilirubin 0.2 mg/dL (0.1-1.2) 01/11/17 06:03 AST 150 units/L (5-40) H 01/11/17 06:03 ALT 179 units/L (7-56) H 01/11/17 06:03 Alkaline Phosphatase 114 units/L (35-129) 01/11/17 06:03 Total Creatine Kinase 191 units/L (30-135) H 01/10/17 08:35 CK-MB (CK-2) 1.6 ng/mL (0.0-4.0) 01/10/17 08:35 Troponin T < 0.010 ng/mL (0.00-0.029) 01/10/17 08:35 Total Protein 6.3 g/dL (6.3-8.2) 01/11/17 06:03 Albumin 3.8 g/dL (3.9-5) L 01/11/17 06:03 Albumin/Globulin Ratio 1.5 % 01/11/17 06:03 Amylase 52 units/L (27-131) 01/10/17 08:35 Lipase 15 units/L (13-60) 01/10/17 08:35 Vitamin B12 787.8 pg/mL (211-911) 01/11/17 06:03 Urine Color Yellow (Yellow) 01/10/17 03:30 Urine Turbidity Cloudy (Clear) 01/10/17 03:30 Urine pH 9.0 (5.0-7.0) H 01/10/17 03:30 Ur Specific [place] 1.014 (1.003-1.030) 01/10/17 03:30 Urine Protein <15 mg/dl mg/dL (Negative) 01/10/17 03:30 Urine Glucose (UA) 50 mg/dL (Negative) 01/10/17 03:30 Urine Ketones Neg mg/dL (Negative) 01/10/17 03:30 Urine Blood Neg (Negative) 01/10/17 03:30 Urine Nitrite Neg (Negative) 01/10/17 03:30 Urine Bilirubin Neg (Negative) 01/10/17 03:30 Urine Urobilinogen < 2.0 mg/dL (<2.0) 01/10/17 03:30 Ur Leukocyte Esterase Neg (Negative) 01/10/17 03:30 Urine WBC (Auto) 1.0 /HPF (0.0-6.0) 01/10/17 03:30 Urine RBC (Auto) < 1.0 /HPF (0.0-6.0) 01/10/17 03:30 U Epithel Cells (Auto) 1.0 /HPF (0-13.0) 01/10/17 03:30 Amorphous Crystals Few 01/10/17 03:30 Hyaline Casts 1 /LPF 01/10/17 03:30 Urine Mucus Few /HPF 01/10/17 03:30 Urine HCG, Qual Negative (Negative) 01/10/17 03:30 Blood Type O POSITIVE 01/11/17 06:05 Antibody Screen Negative 01/11/17 06:05 Crossmatch See Detail 01/11/17 06:05
[2017-01-13 14:24] LABS: Hemoglobin 9.9 gm/dl (10.1-14.3); Mean Corpuscular HGB Conc 31 % (30-34); Mean Corpuscular Hemoglobin 20 pg (28-32); Mean Corpuscular Volume 65 fl (79-97); Platelet Count 381 K/mm3 (140-440); Red Blood Count 4.93 M/mm3 (3.65-5.03); Red Cell Distribution Width 21.2 % (13.2-15.2); White Blood Count 14.3 K/mm3 (4.5-11.0)
[2017-01-13 14:54] LABS: Basophils % (Manual) 0 % (0.0-1.8); Blastocytes % (Manual) 0 %; Eosinophils % (Manual) 0 % (0.0-4.3)
[2017-01-13 14:55] LABS: Anisocytosis 1+; Hypochromasia 1+; Microcytosis 1+; Ovalocytes 1+; Poikilocytosis 2+; Tear Drop Cells Few
[2017-01-13 14:57] LABS: Diff Status Complete; Giant Platelets Rare; Large Platelets Few; Schistocytes Rare
[2017-01-13 14:58] LABS: Platelet Estimate Cons
[2017-01-13] MEDS ORDERED: CHLORASEPTIC MM PRN (15:35)
[2017-01-14] MEDS: DILAUDID IV PRN ×3 (02:50→16:27)
[2017-01-14] MEDS: D5/0.45NS 1,000 ML IV SCH ×2 (02:57→05:45)
[2017-01-14] MEDS: ZOSYN/NS 4.5GM/100ML 4.5 GM/100 ML VIAL IV SCH ×2 (05:47→16:32)
[2017-01-14 06:31] LABS: Basophils % (Auto) 0.5 % (0.0-1.8); Eosinophils % (Auto) 0.1 % (0.0-4.3); Hematocrit 29.4 % (30.3-42.9); Hemoglobin 9.1 gm/dl (10.1-14.3); Mean Corpuscular HGB Conc 31 % (30-34); Platelet Count 337 K/mm3 (140-440); Red Blood Count 4.51 M/mm3 (3.65-5.03)
[2017-01-14 06:32] LABS: Alanine Aminotransferase 132 units/L (7-56); Albumin 3.4 g/dL (3.9-5); Albumin/Globulin Ratio 1.2 %; Alkaline Phosphatase 127 units/L (35-129); Anion Gap 16 mmol/L; BUN/Creatinine Ratio 6.66; Bilirubin,Total 0.3 mg/dL (0.1-1.2); Blood Urea Nitrogen 4 mg/dL (7-17); Carbon Dioxide 26 mmol/L (22-30); Chloride 99.3 mmol/L (98-107); Glucose 103 mg/dL (65-100); Sodium 138 mmol/L (137-145); Total Protein 6.2 g/dL (6.3-8.2)
[2017-01-14 06:40] LABS: Potassium 2.9 mmol/L (3.6-5.0)
[2017-01-14 07:00] LABS: Mean Corpuscular Hemoglobin 20 pg (28-32); Mean Corpuscular Volume 65 fl (79-97); Red Cell Distribution Width 21.5 % (13.2-15.2)
--- NOTE | 2017-01-14 07:44 | Progress Note ---
Assessment and Plan POD # 1 Pt feeling well. Hungry Abd soft. non tender low K. T Nithin - wnl surgically stable replenish K cl liq diet may d/c today from surgical perspective if diet vinita advance to solid low fat diet at home in am. rto I wk Selected Entries 01/13/17 23:02 Temperature 99.2 F Pulse Rate [ 61 Right From Monitor] Respiratory 20 Rate Blood Pressure 143/81 [Right Arm] Laboratory Tests 01/14/17 01/14/17 05:40 05:40 WBC 12.0 H Hgb 9.1 L Hct 29.4 L Sodium 138 Potassium 2.9 L* Chloride 99.3 Total Bilirubin 0.3 AST 73 H ALT 132 H Objective Vital Signs - 12hr 01/13/17 01/13/17 22:00 23:02 Temperature 99.2 F Pulse Rate [ 61 Right From Monitor] Respiratory 20 Rate Blood Pressure 143/81 [Right Arm] O2 Sat by Pulse 100 99 Oximetry - Labs 01/14/17 05:40 01/14/17 05:40 Diabetes panel 01/14/17 Range/Units 05:40 Sodium 138 (137-145) mmol/L Potassium 2.9 L* (3.6-5.0) mmol/L Chloride 99.3 (98-107) mmol/L Carbon Dioxide 26 (22-30) mmol/L BUN 4 L (7-17) mg/dL Creatinine 0.6 L (0.7-1.2) mg/dL Glucose 103 H (65-100) mg/dL Calcium 8.0 L (8.4-10.2) mg/dL AST 73 H (5-40) units/L ALT 132 H (7-56) units/L Alkaline Phosphatase 127 (35-129) units/L Total Protein 6.2 L (6.3-8.2) g/dL Albumin 3.4 L (3.9-5) g/dL Calcium panel 01/14/17 Range/Units 05:40 Calcium 8.0 L (8.4-10.2) mg/dL Albumin 3.4 L (3.9-5) g/dL Pituitary panel 01/14/17 Range/Units 05:40 Sodium 138 (137-145) mmol/L Potassium 2.9 L* (3.6-5.0) mmol/L Chloride 99.3 (98-107) mmol/L Carbon Dioxide 26 (22-30) mmol/L BUN 4 L (7-17) mg/dL Creatinine 0.6 L (0.7-1.2) mg/dL Glucose 103 H (65-100) mg/dL Calcium 8.0 L (8.4-10.2) mg/dL Adrenal panel 01/14/17 Range/Units 05:40 Sodium 138 (137-145) mmol/L Potassium 2.9 L* (3.6-5.0) mmol/L Chloride 99.3 (98-107) mmol/L Carbon Dioxide 26 (22-30) mmol/L BUN 4 L (7-17) mg/dL Creatinine 0.6 L (0.7-1.2) mg/dL Glucose 103 H (65-100) mg/dL Calcium 8.0 L (8.4-10.2) mg/dL Total Bilirubin 0.3 (0.1-1.2) mg/dL AST 73 H (5-40) units/L ALT 132 H (7-56) units/L Alkaline Phosphatase 127 (35-129) units/L Total Protein 6.2 L (6.3-8.2) g/dL Albumin 3.4 L (3.9-5) g/dL
[2017-01-14] MEDS ORDERED: POTASSIUM CHLORIDE PO ONE (09:30)
[2017-01-14] MEDS ORDERED: KCL 10MEQ/100ML 10 MEQ/100 ML BAG IV SCH (10:00)
[2017-01-14] MEDS: PROTONIX IV SCH (10:37)
--- NOTE | 2017-01-14 11:04 | Discharge Summary ---
Providers - Providers Date of Admission: 01/10/17 17:53 Date of discharge: 01/14/17 Attending physician: CHRISTINA HICKEY 01/10/17 18:04 Consult to Physician [CONS] Routine Consulting Provider: RACHEL LYONS Reason For Exam: Cholelithiasis Place consult to:: Office Notified:: yes Phone number called:: [phone] Was contact made?: Yes If yes, spoke with:: Time called:: 20:00 Primary care physician: MECHANICAL ENGINEERING TECHNOLOGIST Hospitalization Condition: Stable Hospital course: Patient is 28-year-old woman with a history of iron deficiency anemia due to severe menstrual period with heavy bleeding, hypertension and hypothyroidism who presents with right upper quadrant abdominal pain with nausea vomiting. Abdominal ultrasound showed cholelithiasis 1. Sepsis, POA due to acute cholecystitis: IV antibiotics and follow cultures 2. Acute cholecystitis with cholelithiasis: Nothing by mouth 3. Acute on chronic blood loss anemia due to fibroids most likely: Transfused 2 units 3..17 per General Surgeon, Dr. Lyons: "POD # 1 Pt feeling well. Hungry Abd soft. non tender low K. T Nithin - wnl surgically stable replenish K cl liq diet may d/c today from surgical perspective if diet vinita advance to solid low fat diet at home in am. rto I wk" Disposition: DISCHARGED TO HOME OR SELFCARE Time spent for discharge: 37 minutes Core Measure Documentation - Palliative Care Palliative Care/ Comfort Measures: Not Applicable - Core Measures Any of the following diagnoses?: none - VTE Discharge Requirements Deep Vein Thrombosis/Pulmonary Embolism Present on Admission: No Has pt received <5 days of overlap therapy or INR<2.0: No Anticoagulant overlap therapy prescribed at discharge: No Contraindication No Overlap Therapy order at DC: Not Indicated Exam - Physical Exam Narrative exam: GEN: WDWN, NAD, AWAKE, ALERT, ORIENTATED 3 HEENT: NCAT, PERRL, EOMI, OP CLEAR NECK: SUPPLE, NO THYROMEGALY, NO JVD, NO LAD CVS: RRR, NORMAL S1S2 LUNGS/CHEST: CTA B, NORMAL CHEST EXPANSION B, GOOD AIR ENTRY B ABD: SOFT, RIGHT SIDED TENDERNESS, NONDISTENDED GBS, NO REBOUND OR GUARDING EXT/SKIN: NO SIGNIFICANT EDEMA OR RASH, mucous membranes dry MSK: FROM X 4 EXTREMITIES NEURO: CN 2-12 GROSSLY INTACT, NO new FOCAL DEFICITS PSY: CALM - Constitutional Vitals: Temp Pulse Resp BP Pulse Ox 98.3 F 65 18 137/86 98 01/14/17 08:00 01/14/17 08:00 01/14/17 08:00 01/14/17 08:00 01/14/17 08:00 Plan Activity: advance as tolerated (no strenous activites until cleared by your surgeon) Diet: advance as tolerated Follow up with: PRIMARY MD AMBERLY [Primary Care Provider] - 3-5 Days RACHEL LYONS MD [Staff Physician] - 7 Days Prescriptions: Ciprofloxacin HCl [Ciprofloxacin TAB] 500 mg PO BID #10 tablet metroNIDAZOLE [Flagyl] 500 mg PO Q8HR #15 tablet oxyCODONE /ACETAMINOPHEN [Percocet 5/325] 1 tab PO Q4HR PRN #30 tab PRN Reason: Pain , Severe (7-10)
[2017-01-14 17:28] VITALS: BP 145/91
[2017-01-15] MEDS ORDERED: PROTONIX PO SCH (10:00)
== END 2017-01-14 18:15 | disposition home or self-care (01) | DRG 854 ==
LOC: ED 03:11 → 2B-SURG 17:53
PROVIDERS: ADMIT Internal Medicine; ATTEND Internal Medicine
PROC: 30233N1 Transfusion of Nonautologous Red Blood Cells into Peripheral Vein, Percutaneous Approach (ICD-10-PCS; 2017-01-11)
PROC: 0FT44ZZ Resection of Gallbladder, Percutaneous Endoscopic Approach (ICD-10-PCS; principal; 2017-01-13)
DX: A41.9 Sepsis, unspecified organism (principal); K80.00 Calculus of gallbladder with acute cholecystitis without obstruction; D62 Acute posthemorrhagic anemia; I10 Essential (primary) hypertension; E87.6 Hypokalemia; E03.9 Hypothyroidism, unspecified; D21.9 Benign neoplasm of connective and other soft tissue, unspecified; Z82.49 Family history of ischemic heart disease and other diseases of the circulatory system; Z83.3 Family history of diabetes mellitus
CPT/HCPCS: 36415; 71020; 74177; 76705; 80048; 80053; 81001; 81025; 82140; 82150; 82550; 82553; 82607; 82747; 82805; 83550; 83690; 84484; 85007; 85025; 86850; 86900; 86901; 86920; 87040; 87075; 87116; 87400; 88304; 93005; 93010; 96365; 96366; 96367; 96375; 96376; A4217; C9113; J1100; J1170; J1885; J1956; J2250; J2270; J2405; J2543; J2704; J2710; J3480; J7030; J7040; J7120; P9016; Q9967

== ENCOUNTER 2017-04-08 16:54 | Outpatient (CLI) | payer BC ==
[2017-04-08 17:23] LABS: Blood Urea Nitrogen 9 mg/dL (7-17)
--- NOTE | 2017-04-10 10:41 | Magnetic Resonance Report ---
MRI PELVIS WITHOUTAND WITH CONTRAST: 04/08/17 16:54:00 CLINICAL: Uterine fibroids. COMPARISON :CT abdomen and pelvis with contrast 01/10/17 TECHNIQUE: Sagittal, coronal and axial T1 and T2 fat sat sequences plus sagittal, coronal and axial postcontrast T1 fat sequences on a 1.5 Melia magnet. 20.0 cc of Multihance was injected intravenously for the contrast portion of exam and consent was obtained prior to the administration of contrast. FINDINGS: A mildly enlarged fibroid uterus measures approximately 11.0 x 8.4 x 6.9 cm. The only distinct measurable uterine fibroid is located posterior intramural to the left of midline in the uterine body and it measures 2.2 x 2.2 x 1.8 cm. The fibroid demonstrates moderate enhancement postcontrast. The overall enhancement pattern of the uterus is heterogeneous suggesting that there may be at the distal smaller fibroids. The endometrium is thickened and measures 12.6 mm AP thickness. Ovaries are normal size with small follicles. The largest follicle is on the right and measures 1.7 cm. No adnexal mass or free fluid. Normal rectum and sigmoid colon. Bones and soft tissues are normal. IMPRESSION: 1. A mildly enlarged fibroid uterus with a 2.2 cm dominant fibroid. 2. Nonspecific endometrial thickening. 3. Normal ovaries.
== END 2017-04-08 16:55 | disposition home or self-care (01) ==
LOC: MRI 16:54
PROVIDERS: ATTEND Radiology Diagnostic Radiology
DX: D25.9 Leiomyoma of uterus, unspecified (principal); I10 Essential (primary) hypertension; D64.9 Anemia, unspecified; Z87.891 Personal history of nicotine dependence
CPT/HCPCS: 36415; 72197; 82565; 84520; A9577